=== PATIENT | female | born 1965 | race Caucasian/White ===

== ENCOUNTER 2016-10-25 10:44 | Day surgery (SDC) | payer MEDICARE ==
[~2016-10-25] VITALS: Ht 149.9 cm; Wt 54.4 kg
[~2016-10-25 10:44] MED LIST: AMBIEN5 MG PO; CELEXA10 MG PO; CELEXA40 MG PO; CLARITIN 10 MG10 MG PO; CYMBALTA30 MG PO; DEPO-PROVER150 MG/ML IM; DETROL LA4 MG PO; GEODON20 MG PO; HYDROCHLOROTHIA25 MG PO; METFORMIN HCL500 M1 PO; MULTIPLE VITAMI1 TA1 PO; NEXIUM40 MG PO; OXYBUTYNIN CHLOR5 MG PO; PEPCID20 MG PO; PRILOSEC20 MG PO; PROTONIX40 MG PO; STOOL SOFTENER100 M1 PO; ULTRAM50 MG PO
[2016-10-25 12:40] LABS: BASOPHILS 0.2 % (0.0-2.0); EOSINOPHILS 0.5 % (0-7); HEMATOCRIT 40.6 % (36.0-48.0); HEMOGLOBIN 13.3 g/dL (12-16); IMMATURE GRANULOCYTES 0.2 % (0-5); LYMPHOCYTES 26.5 % (15-50); MCH 29.8 pg (26.0-34.0); MCHC 32.8 g/dL (31.0-37.0); MEAN PLATELET VOLUME 9.8 fL (7.4-10.4); MONOCYTES 7.3 % (2-11); NEUTROPHILS 65.3 % (40-80); RBC 4.46 10x6/uL (4.00-5.40); WBC 6.6 10x3/uL (4.8-10.8)
[2016-10-25 12:50] LABS: CALC OSMOLALITY 282 mosm/kg (275-300); CALCIUM 9.5 mg/dL (8.5-10.1); CARBON DIOXIDE 31.8 mmol/L (21.0-32.0); CHLORIDE - SERUM 104 mmol/L (98-107); CREATININE - SERUM 0.5 mg/dL (0.6-1.3); GLUCOSE 98 mg/dL (74-106); POTASSIUM - SERUM 3.9 mmol/L (3.5-5.1); SODIUM 143 mmol/L (136-145); UREA NITROGEN 7 mg/dL (7-18); eGFR NON AFRICAN AMERICAN > 90 mL/min (90-120)
[2016-10-25 12:57] LABS: PLATELET COUNT 264 10x3/uL (130-400)
[2016-10-25 13:01] VITALS: BP 119/56; Ht 149.9 cm; Wt 54.4 kg
--- NOTE | 2016-10-25 15:24 | NUR ---
1523-INFLATE 54 SYRINGE TO 60 CANADI[place] TIMES ONE MINUTE.
--- NOTE | 2016-10-25 16:20 | NUR ---
ASSISTED PATIENT UP TO BATHROOM AND TO DRESS, PATIENT URINATES LARGE AMOUNT ON TOILET. PATIENT REQUIRES COMPLETE ASSISTANCE FOR TRANSFERRING AND DRESSING SECONDARY TO CHRONIC DIAGNOSIS OF CEREBRAL PALSY.
--- NOTE | 2016-10-25 16:40 | NUR ---
REVIEWED DISCHARGE INSTRUCTIONS WITH PATIENT AND SISTER. SISTER SIGNS DUE TO PATIENT NOT BEING ABLE PHYSICALLY TO SIGN. SISTER STATES THAT PATIENT HAS A STAMP TO BE ABLE TO "SIGN" FOR HERSELF BUT DOESN'T HAVE IT WITH HER. TRANSPORTED PATIENT TO OUTPATIENT DOOR TO DISCHARGE AND PATIENT STATES THAT SHE NEEDS TO HAVE A BOWEL MOVEMENT. TAKEN TO VISITOR BATHROOM NEAR OUTPATIENT EXIT, ASSISTED PATIENT'S SISTER IN HELPING PATIENT ONTO TOILET AND OFF, PATIENT HAD SMALL CLEAR BM IN TOILET. ASSISTED INTO SISTER'S CAR AT 1700 FOR DISCHARGE HOME
--- NOTE | 2016-10-26 12:03 | OP ---
PATIENT NAME: SANDRA GAITAN MEDICAL RECORD: [id number] :65 LOCATION:[facility] ADMISSION DATE: SURGEON: LAURA LEHMAN DO DATE OF OPERATION: 10/25/2016 PROCEDURES: EGD with biopsies and balloon dilation less than 30 mm. ENDOSCOPIST: Laura Lehman DO. SCOPE: Olympus video gastroscope. MEDICATIONS: 200 mg of propofol IV per anesthesia. INDICATIONS FOR PROCEDURE: Dysphagia with a history of esophageal dilation and gastroesophageal reflux disease. FINDINGS: Informed consent was given. The patient was made comfortable with the above medications. After reaching an adequate level of sedation by slow IV push, the patient was placed on her left side. The endoscope was then advanced under direct visualization through the mouth to the second portion of the duodenum. The upper, middle and distal thirds of the esophagus appeared normal. At the GE junction, there was some mild LA Class A reflux-induced esophagitis present. There was also a ring located just superior to the GE junction consistent with a Schatzki ring. It measured approximately 17 mm in diameter allowing the scope to pass freely through the site. The scope was advanced into the stomach and retroflexed to view the cardia where a small sliding hiatal hernia was present. There was evidence of patchy gastritis characterized by erythema and granularity. This was located in the fundus of the stomach as well as the body and antrum. Random biopsies were taken to submit for histology and to rule out H. pylori. Scope was advanced down into the duodenum where the bulb and second portion of the duodenum appeared normal. Scope was withdrawn back into the stomach and a dilating balloon was passed through the scope. The ring in the distal esophagus was dilated up to 20 mm in diameter without fluoroscopic guidance or guidewire. The maneuver was successful. Scope was then withdrawn from the patient. The patient tolerated the procedure well and there were no complications. IMPRESSION: 1. Grade A reflux-induced esophagitis at the gastroesophageal junction. 2. Distal esophageal Schatzki ring dilated up to 20 mm with the balloon. 3. Small sliding hiatal hernia. 4. Patchy gastritis, biopsied with cold forceps. PLAN AND RECOMMENDATIONS: 1. Discharge home when recovery parameters are met. 2. Continue current diet with reflux precautions. 3. Discontinue Prilosec while continuing Pepcid and Protonix. 4. Continue current medications otherwise. 5. Follow up in the GI clinic as needed for repeat EGD with possible dilation as needed. TRANSINT:[id number] Voice Confirmation ID: [id number] DOCUMENT ID: [id number] OPERATIVE REPORT [id number] SANDRA GAITAN NATHAN A DO at 1203 CC: [id number] DICTATION DATE: 10/25/16 1535 VOICE OVER ANNOUNCER: 10/25/16 2241 [facility] 10/25/[address] [address]
== END 2016-10-25 17:00 | disposition home or self-care (01) ==
LOC: D.OPS 10:44
PROVIDERS: Anesthesiology
DX: K21.0 Gastro-esophageal reflux disease with esophagitis (principal); K44.9 Diaphragmatic hernia without obstruction or gangrene; K22.2 Esophageal obstruction

== ENCOUNTER 2017-12-19 20:41 | Emergency (ER) | payer MEDICARE ==
[2017-12-19 22:26] LABS: BASOPHILS 0.1 % (0-2); EOSINOPHILS 0.7 % (0-7); HEMOGLOBIN 13.2 g/dL (12-16); IMMATURE GRANULOCYTES 0.1 % (0-5); LYMPHOCYTES 28.4 % (15-50); MCH 30.1 pg (26.0-34.0); MCV 91.3 fL (80.0-100.0); MEAN PLATELET VOLUME 9.4 fL (7.4-10.4); MONOCYTES 7.7 % (2-11); PLATELET COUNT 310 10x3/uL (130-400); RBC 4.38 10x6/uL (4.00-5.40); RDW 12.8 % (11.5-14.5); WBC 7.1 10x3/uL (4.8-10.8)
[2017-12-19 22:51] LABS: ALKALINE PHOSPHATASE 81 U/L (46-116); ALT (SGPT) 23 U/L (10-68); CALC OSMOLALITY 281 mosm/kg (275-300); CALCIUM 9.5 mg/dL (8.5-10.1); CARBON DIOXIDE 27.4 mmol/L (21.0-32.0); CHLORIDE - SERUM 104 mmol/L (98-107); CREATININE - SERUM 0.5 mg/dL (0.6-1.3); GLUCOSE 117 mg/dL (74-106); MAGNESIUM - SERUM 2.1 mg/dL (1.8-2.4); POTASSIUM - SERUM 4.2 mmol/L (3.5-5.1); PROTEIN - SERUM 7.6 g/dL (6.4-8.2); SODIUM 142 mmol/L (136-145); UREA NITROGEN 7 mg/dL (7-18); eGFR NON AFRICAN AMERICAN > 90 mL/min (90-120)
== END 2017-12-19 23:28 | disposition home or self-care (01) ==
LOC: D.ER 20:41
PROVIDERS: Emergency Medicine
DX: R20.2 Paresthesia of skin (principal); Z86.73 Personal history of transient ischemic attack (TIA), and cerebral infarction without residual deficits; G80.9 Cerebral palsy, unspecified

== ENCOUNTER 2018-07-17 08:23 | Day surgery (SDC) | payer MEDICARE ==
[~2018-07-17] VITALS: Ht 149.9 cm; Wt 59.1 kg
--- NOTE | ~2018-07-17 | OP ---
PATIENT NAME: SANDRA GAITAN MEDICAL RECORD: [id number] :65 LOCATION:[facility] ADMISSION DATE: SURGEON: LAURA LEHMAN DO DATE OF OPERATION: 07/17/2018 PROCEDURE: Colonoscopy with polypectomy. INDICATIONS FOR PROCEDURE: Constipation and lower abdominal pain. SCOPE: Olympus video pediatric colonoscope. MEDICATIONS: Propofol 350 mg IV per anesthesia. WITHDRAWAL TIME: 14 minutes. ESTIMATED BLOOD LOSS: Minimal. COMPLICATIONS: None. FINDINGS AND DESCRIPTION OF PROCEDURE: Informed consent was given. The patient was made comfortable with the above medication. After reaching an adequate level of sedation by slow IV push, the patient was placed on her left side. A digital rectal examination was performed and was normal. The endoscope was then advanced under direct visualization through the rectum to the terminal ileum. The endoscope was slowly withdrawn and mucosa was carefully examined. The prep quality was excellent. There were 3 polyps visualized on today's examination. The first was located in the transverse colon. It was benign appearing sessile polyp, which measured approximately 5 to 6 mm in diameter. It was removed using hot snare in 1 piece and completely retrieved. In the descending colon, there was a benign appearing sessile polyp, which measured approximately 3-mm in diameter. It was removed using hot forceps in 1 piece and completely retrieved. In the sigmoid colon, there was a benign appearing sessile polyp, which measured approximately 4-mm in diameter. It was removed using a hot snare in 1 piece and completely retrieved. There were no diverticula or other findings on today's examination. Retroflexion was performed in the rectum with a normal appearing rectal wall. The endoscope was then withdrawn from the patient. The patient tolerated the procedure well and there were no complications. IMPRESSION: 1. Three polyps as described above, removed using combination of hot snare and hot forceps. 2. Otherwise, normal colonoscopy. PLAN AND RECOMMENDATIONS: 1. Discharge home when recovery parameters are met. 2. Follow up biopsy specimen results. 3. High fiber diet. 4. Supplement diet with 1 tablespoon of Metamucil daily. 5. If still constipated while on high fiber supplementation, consider use of MiraLax 1 cap daily to b.i.d. as needed for constipation. 6. If constipation continues despite these supplements, we will consider use of Linzess or Amitiza. 7. Follow up in GI clinic in 4 weeks. TRANSINT:[id number] Voice Confirmation ID: [id number] DOCUMENT ID: [id number] OPERATIVE REPORT [id number] SANDRA GAITAN NATHAN A DO at 1554 CC: [id number] DICTATION DATE: 07/17/18 1139 CLINICAL DIRECTOR: 07/17/18 1200 [facility] 07/17/18 [place] [id number] [place] [id number]
[2018-07-17 09:37] LABS: BASOPHILS 0.5 % (0-2); EOSINOPHILS 0.5 % (0-7); HEMATOCRIT 38.2 % (36.0-48.0); HEMOGLOBIN 12.7 g/dL (12-16); IMMATURE GRANULOCYTES 1.4 % (0-5); LYMPHOCYTES 28.3 % (15-50); MCH 29.8 pg (26.0-34.0); MCHC 33.2 g/dL (31.0-37.0); MCV 89.7 fL (80.0-100.0); MEAN PLATELET VOLUME 9.2 fL (7.4-10.4); NEUTROPHILS 61.3 % (40-80); PLATELET COUNT 267 10x3/uL (130-400); RBC 4.26 10x6/uL (4.00-5.40); RDW 13.1 % (11.5-14.5); WBC 6.4 10x3/uL (4.8-10.8)
[2018-07-17 09:51] LABS: CALC OSMOLALITY 281 mosm/kg (275-300); CALCIUM 9.1 mg/dL (8.5-10.1); CARBON DIOXIDE 24.2 mmol/L (21.0-32.0); CHLORIDE - SERUM 104 mmol/L (98-107); CREATININE - SERUM 0.6 mg/dL (0.6-1.3); GLUCOSE 77 mg/dL (74-106); POTASSIUM - SERUM 3.5 mmol/L (3.5-5.1); SODIUM 143 mmol/L (136-145); UREA NITROGEN 7 mg/dL (7-18); eGFR NON AFRICAN AMERICAN > 90 mL/min (90-120)
[2018-07-17] MEDS ORDERED: DESERYL50 M2 PO (10:13)
[2018-07-17] MEDS ORDERED: KLONOPIN0.5 MG PO (10:14)
[2018-07-17] MEDS ORDERED: MULTI-DAY VITAM1 TAB PO (10:15)
[2018-07-17] MEDS ORDERED: FIBERCON625 MG PO (10:17)
[2018-07-17 10:25] VITALS: BP 101/79; Ht 149.9 cm; Wt 59.1 kg
== END 2018-07-17 12:52 | disposition home or self-care (01) ==
LOC: D.OPS 08:23
PROVIDERS: Anesthesiology
DX: D12.4 Benign neoplasm of descending colon (principal); D12.5 Benign neoplasm of sigmoid colon; D12.3 Benign neoplasm of transverse colon; Z01.812 Encounter for preprocedural laboratory examination

== ENCOUNTER 2018-08-07 05:41 | Day surgery (SDC) | payer MEDICARE ==
[~2018-08-07] VITALS: Ht 149.9 cm; Wt 56.8 kg
[~2018-08-07 05:41] MED LIST changes: +DESERYL50 M2 PO; +FIBERCON625 MG PO; +KLONOPIN0.5 MG PO; +MULTI-DAY VITAM1 TAB PO
[2018-08-07 06:04] LABS: HEMATOCRIT 39.4 % (36.0-48.0); HEMOGLOBIN 13.1 g/dL (12-16); MCH 29.9 pg (26.0-34.0); MCHC 33.2 g/dL (31.0-37.0); MEAN PLATELET VOLUME 9.1 fL (7.4-10.4); RBC 4.38 10x6/uL (4.00-5.40); RDW 12.8 % (11.5-14.5); WBC 6.3 10x3/uL (4.8-10.8)
[2018-08-07 06:25] LABS: CALC OSMOLALITY 283 mosm/kg (275-300); CARBON DIOXIDE 27.8 mmol/L (21.0-32.0); CHLORIDE - SERUM 104 mmol/L (98-107); CREATININE - SERUM 0.5 mg/dL (0.6-1.3); GLUCOSE 102 mg/dL (74-106); POTASSIUM - SERUM 3.8 mmol/L (3.5-5.1); SODIUM 142 mmol/L (136-145); UREA NITROGEN 14 mg/dL (7-18); eGFR NON AFRICAN AMERICAN > 90 mL/min (90-120)
[2018-08-07 06:37] VITALS: Ht 149.9 cm; Wt 56.8 kg
--- NOTE | 2018-08-07 10:15 | OP ---
PATIENT NAME: SANDRA GAITAN MEDICAL RECORD: [id number] :65 LOCATION:[facility] ADMISSION DATE: SURGEON: LAURA LEHMAN DO DATE OF OPERATION: 08/07/2018 PROCEDURE: EGD with biopsies. INDICATIONS FOR PROCEDURE: Dysphagia with a history of esophageal dilation, lower abdominal pain. SCOPE: Olympus video gastroscope. MEDICATIONS: Propofol 150 mg IV per anesthesia. ESTIMATED BLOOD LOSS: Minimal. COMPLICATIONS: None. FINDINGS: Informed consent was given. The patient was made comfortable with the above medication. After reaching an adequate level of sedation by slow IV push, the patient was placed on her left side. The endoscope was advanced under direct visualization through the mouth to the second portion of the duodenum with ease. The upper, middle, and lower thirds of the esophagus appeared normal. At the GE junction, there was some LA class A reflux-induced esophagitis and a small Schatzki's ring, which was traversed. It was dilated with a CRE balloon up to 18 mm maximum diameter successfully. The endoscope was advanced beyond the GE junction into the stomach and retroflexed to view the cardia and fundus. There was some mild gastritis characterized by erythema, granularity and congestion. This continued throughout the entire stomach into the body, antrum, and prepyloric regions. Random cold forceps biopsies were taken to submit for histopathology and to rule out the presence of H. pylori. The endoscope was advanced beyond the pylorus into the duodenum. The entire examined duodenum appeared normal down to the second portion. The endoscope was then withdrawn from the patient. The patient tolerated the procedure well and there were no complications. IMPRESSION: 1. LA class A reflux-induced esophagitis. 2. Small Schatzki's ring located at the GE junction, status post dilation with a CRE balloon to 18 mm successfully. 3. Gastritis. PLAN AND RECOMMENDATIONS: 1. Discharge home when recovery parameters are met. 2. Follow up biopsy specimen results. 3. GERD diet and reflux precautions. 4. Continue current medications. 5. A prescription will be provided for omeprazole 40 mg capsules to be taken once daily for 60 days. 6. Follow up in GI clinic as needed. TRANSINT:[id number] Voice Confirmation ID: [id number] DOCUMENT ID: [id number] OPERATIVE REPORT [id number] SANDRA GAITAN LAURA LEHMAN DO at 1015 CC: [id number] DICTATION DATE: 08/07/18 0802 FLORAL DESIGNER: 08/07/1820 [facility] 08/07/18 [place] [id number] [facility] [place] [address]
== END 2018-08-07 08:52 | disposition home or self-care (01) ==
LOC: D.OPS 05:41
PROVIDERS: Anesthesiology
DX: K21.0 Gastro-esophageal reflux disease with esophagitis (principal); K22.2 Esophageal obstruction; K29.70 Gastritis, unspecified, without bleeding; Z01.812 Encounter for preprocedural laboratory examination

== ENCOUNTER → 2018-10-17 10:29 | Outpatient (CLI) | payer MEDICARE ==
[2018-08-07 06:37] VITALS: BMI 25.3
== END | disposition home or self-care (01) ==
LOC: D.RAD 10:29
PROVIDERS: ATTEND Internal Medicine Gastroenterology
DX: R13.10 Dysphagia, unspecified (principal); K59.00 Constipation, unspecified